=== PATIENT | female | born 1960 | race Caucasian/White ===

== ENCOUNTER 2021-03-15 21:41 | Emergency (ER) | payer OTHER ==
[2021-03-15 22:27] LABS: HEMOGLOBIN 13.7 gm/dl (12.3-15.3); RED BLOOD COUNT 4.75 M/UL (4.00-5.10); WHITE BLOOD COUNT 9.7 K/UL (4.5-11.0)
[2021-03-15 22:47] LABS: BUN/CREATININE RATIO 25 (0-10)
== END 2021-03-16 00:20 | disposition home or self-care (01) ==
LOC: ER1 21:41
PROVIDERS: Family Medicine
DX: R00.2 Palpitations (principal); E87.6 Hypokalemia; I10 Essential (primary) hypertension; Z88.1 Allergy status to other antibiotic agents; Z79.1 Long term (current) use of non-steroidal anti-inflammatories (NSAID)
CPT/HCPCS: 71045; 80048; 82550; 82553; 83874; 84439; 84443; 84484; 85025; 85610; 85730; 93005; 99285